=== PATIENT | male | born 1930 | race Caucasian/White ===

== ENCOUNTER 2016-10-22 16:40 | Emergency (ER) | payer MEDICARE ==
--- NOTE | 2016-10-22 17:27 | RAD ---
HISTORY: Fever COMPARISONS: None VIEWS: 2: Frontal and lateral views of the chest. FINDINGS: CARDIOMEDIASTINAL SILHOUETTE: The cardiomediastinal silhouette is normal. KRISTIAN: The kristian are normal. PLEURA: There is mild elevation of the right hemidiaphragm. LUNG PARENCHYMA: The lungs are clear. ABDOMEN: The upper abdomen is clear. There is no subphrenic gas. BONES AND SOFT TISSUES: No bone or soft tissue abnormalities are noted. OTHER: None. IMPRESSION: MILD ELEVATION OF THE RIGHT HEMIDIAPHRAGM. NO ACTIVE CARDIOPULMONARY DISEASE
[2016-10-22 18:11] LABS: Hematocrit 36 % (42-52); Hemoglobin 11.9 g/dl (14.0-18.0); Mean Corpuscular HGB Conc 33 g/dl (31-36); Mean Corpuscular Hemoglobin 30 pg (27-31); Mean Corpuscular Volume 91 fL (80-94); Mean Platelet Volume 9 um3 (7.4-10.4); Red Cell Distribution Width 14 % (10.5-15); White Blood Count 9.2 10^3/ul (3.5-10.8)
[2016-10-22 18:25] LABS: Albumin 3.3 g/dL (3.2-5.2); BUN/Creatinine Ratio 21.1 (8-20); C Reactive Protein 78.14 mg/L (< 5.00); EGFR African American 65.3 (>60); EGFR Non-African American 50.7 (>60); Globulin 3.7 g/dL (2-4); Potassium 3.9 mmol/L (3.5-5.0)
[2016-10-22] MEDS ORDERED: NS 0.9% 1000 ML* 1,000 ML IV ONE (19:12)
[2016-10-22 19:39] LABS: Urine Bacteria 3+ (Absent); Urine Bilirubin Negative (Negative); Urine Glucose Negative (Negative); Urine Nitrite Positive (Negative)
[2016-10-22 19:41] LABS: Total Bilirubin 0.4 mg/dL (0.2-1.0)
[2016-10-22] MEDS ORDERED: Ciprofloxacin 400MG IVPREMIX(* 400 MG/200 ML BAG IVPB ONE (20:09)
--- NOTE | 2016-10-22 20:26 | ED ---
Ryan Van Billy, scribed for Jamin Joseph MD on 10/22/16 at 1659 . HPI Febrile Illness - HPI Summary HPI Summary: Patient is an 86 year-old male coming to [facility] presenting with 99.8F fever today at 1445. He was given 325mg Tylenol without improvement; fever 101.4F at 1600. Patient reports occasionally productive cough, as well. He denies any CP, SOB, abd pain, or N/V/D. Last BM 1 hour ago. - History of Current Complaint Chief Complaint: EDFever Time Seen by Provider: 10/22/16 16:40 Hx Obtained From: Patient Onset/Duration: Started Hours Ago, Still Present Timing: Constant Temperature: 101.4 F Initial Severity: Moderate Pain Intensity: 0 Pain Scale Used: 0-10 Numeric Aggravating Factors: Nothing Alleviating Factors: Nothing Associated Signs and Symptoms: Cough - Allergy/Home Medications Allergies/Adverse Reactions: Allergies Allergy/AdvReac Type Severity Reaction Status Date / Time No Known Allergies Allergy Verified 10/22/16 17:07 Home Medications: Home Medications Acetaminophen TAB* [Tylenol TAB*] 650 mg PO Q4H PRN 10/22/16 [History Confirmed 10/22/16] Donepezil TAB* [Aricept TAB*] 10 mg PO DAILY 10/22/16 [History Confirmed ] Irbesartan (NF) [Avapro (NF)] 150 mg PO BEDTIME 10/22/16 [History Confirmed 06/28] Magnesium Hydroxide LIQ* [Milk of Magnesia LIQ*] 30 ml PO DAILY PRN 10/22/16 [ History Confirmed 10/22/16] Omeprazole CAP* [Prilosec CAP* 20 MG] 40 mg PO DAILY 10/22/16 [History Confirmed 10/22/16] PMH/Surg Hx/FS Hx/Imm Hx Endocrine/Hematology History: Reports: Other Endocrine/Hematological Disorders - pancreatitis History: Reports: Hx Renal Disease Neurological History: Reports: Hx Dementia Infectious Disease History: Unable to Obtain/Confirm Infectious Disease History: Denies: Traveled Outside the [place] in Last 30 Days - Family History Known Family History: Negative: Cardiac Disease, Hypertension, Diabetes - Social History Lives: Assisted Living Alcohol Use: Occasionally Hx Substance Use: No Substance Use Type: Reports: None Hx Tobacco Use: No Smoking Status (MU): Never Smoked Tobacco Review of Systems Positive: Fever Negative: Chest Pain Positive: Cough. Negative: Shortness Of Breath Negative: Abdominal Pain, Vomiting, Diarrhea, Nausea All Other Systems Reviewed And Are Negative: Yes Physical Exam - Summary Physical Exam Summary: VITAL SIGNS: Reviewed. GENERAL: Patient is a well developed and nourished male who is lying comfortable in the stretcher. Patient is not in any acute respiratory distress. HEAD AND FACE: No signs of trauma. No ecchymosis, hematomas or skull depressions. No sinus tenderness. EYES: PERRLA, EOMI x 2, No injected conjunctiva, no nystagmus. EARS: Hearing grossly intact. Ear canals and tympanic membranes are within normal limits. MOUTH: Oropharynx within normal limits. NECK: Supple, trachea is midline, no adenopathy, no JVD, no carotid bruit, no c- spine tenderness, neck with full ROM. CHEST: Symmetric, no tenderness at palpation LUNGS: Coarse breath sounds bilateral. CVS: Regular rate and rhythm, S1 and S2 present, no murmurs or gallops appreciated. ABDOMEN: Soft, non-tender. No signs of distention. No rebound no guarding, and no masses palpated. Bowel sounds are normal. EXTREMITIES: FROM in all major joints, no edema, no cyanosis or clubbing. NEURO: Alert and oriented x 3. No acute neurological deficits. Speech is normal and follows commands. SKIN: Dry and warm Triage Information Reviewed: Yes Vital Signs On Initial Exam: Initial Vitals Temp Pulse Resp BP Pulse Ox 98.8 F 76 16 112/55 94 10/22/16 16:52 10/22/16 16:52 10/22/16 16:52 10/22/16 16:52 10/22/16 16:52 Vital Signs Reviewed: Yes Diagnostics - Vital Signs Vital Signs Temp Pulse Resp BP Pulse Ox 10/22/16 16:52 98.8 F 76 16 112/55 94 - Laboratory Result Diagrams: 10/22/16 18:00 10/22/16 18:00 Lab Statement: Any lab studies that have been ordered have been reviewed, and results considered in the medical decision making process. - Radiology CXR Radiology Interpretation Completed By: Radiologist - MILD ELEVATION OF THE RIGHT HEMIDIAPHRAGM. NO ACTIVE CARDIOPULMONARY DISEASE Course/Dx - Course Assessment/Plan: Patient is an 86 year-old male coming to [facility] presenting with 99.8F fever today at 1445. He was given 325mg Tylenol without improvement; fever 101.4F at 1600. Patient reports occasionally productive cough, as well. He denies any CP, SOB, abd pain, or N/V/D. Last BM 1 hour ago. Bloodwork shows normocytic normochromic anemia, hyponatremia, renal insufficiency likely secondary to dehydration, and increased CRP. UA shows a possible UTI for which he was given ciprofloxacin. We will send for cultures, PCP will f/u results. Influenza A/B negative, CXR shows no pneumonia. At this point, I discussed my physical exam findings and test results with patient and daughter and they were instructed to follow up with PCP. They were also given instructions to reutrn to the ED with any fever, SOB, productive cough, chest pain, or any other symptoms. They understand and agree. - Febrile Illness Differential Diagnoses: Other: - PNA, Bronchitis, URI, Flu - Diagnoses Provider Diagnoses: Urinary tract infection Discharge - Discharge Plan Condition: Stable Disposition: HOME Prescriptions: Ciprofloxacin TAB* [Cipro Tab*] 500 mg PO BID #10 tab Patient Education Materials: Urinary Tract Infection in Men (ED) Referrals: Braxton Washburn MD [Primary Care Provider] - The documentation as recorded by the Ryan marinelli Billy accurately reflects the service I personally performed and the decisions made by me, Jamin Joseph MD.
[2016-10-22 21:54] VITALS: BP 125/78
== END 2016-10-22 21:52 | disposition home or self-care (01) ==
LOC: ED 16:40
DX: N39.0 Urinary tract infection, site not specified (principal); R50.9 Fever, unspecified; R05 Cough
CPT/HCPCS: 36415; 71020; 80053; 81003; 81015; 83605; 83880; 84484; 85025; 85610; 86140; 87040; 87077; 87086; 87186; 87502; 96374; 99285; J0744

== ENCOUNTER 2016-10-24 19:33 | Emergency (ER) | payer MEDICARE ==
[2016-10-24] MEDS ORDERED: NS 0.9% 1000 ML* 1,000 ML IV ONE (20:06)
--- NOTE | 2016-10-24 20:50 | RAD ---
INDICATION: Fall COMPARISON: Chest x-ray dated October 22, 2016 TECHNIQUE: Single AP portable view of the chest was obtained. FINDINGS: Image quality is compromised due to the relative inferiority of a portable chest x-ray. The heart and mediastinum exhibit normal size and contour. There is mild calcified atherosclerosis of the arch of the aorta. The aorta exhibits the same ectatic change it did on the previous chest x-ray. There is asymmetric elevation of the right hemidiaphragm. Otherwise the lungs are grossly clear. There is no evidence of a large pleural effusion. Visualized bones are normal for the patient's age. IMPRESSION: No radiographic evidence for acute cardiopulmonary abnormality on this portable chest x-ray.
[2016-10-24 20:54] LABS: Hematocrit 36 % (42-52); Hemoglobin 11.5 g/dl (14.0-18.0); Mean Corpuscular HGB Conc 32 g/dl (31-36); Mean Corpuscular Hemoglobin 29 pg (27-31); Mean Corpuscular Volume 90 fL (80-94); Mean Platelet Volume 9 um3 (7.4-10.4); Red Blood Count 3.93 10^6/ul (4.0-5.4); Red Cell Distribution Width 14 % (10.5-15); White Blood Count 8.7 10^3/ul (3.5-10.8)
[2016-10-24 20:57] LABS: Albumin 3.2 g/dL (3.2-5.2); BUN/Creatinine Ratio 16.8 (8-20); EGFR African American 70.1 (>60); EGFR Non-African American 54.5 (>60); Globulin 3.6 g/dL (2-4); Potassium 4.1 mmol/L (3.5-5.0); Total Bilirubin 0.3 mg/dL (0.2-1.0); Total Protein 6.8 g/dL (6.4-8.9)
[2016-10-24 20:59] LABS: Add Diff/Slide Review? Slide Review Added; Comments Flag Yes
--- NOTE | 2016-10-24 21:25 | RAD ---
indication: Fall COMPARISON: None A CT scan of the brain and c-spine was performed without intravenous contrast enhancement. Contiguous axial sections were obtained from the lung apices through the vertex. BRAIN: The ventricles, cisterns and sulci exhibit age-appropriate symmetrical involutional changes. There is moderate periventricular and subcortical white matter hypoattenuation most consistent with chronic microvascular disease.. No significant focal abnormality or mass effect is seen. The young-white differentiation is adequately maintained. Coarse atherosclerotic calcification of the petrous carotid arteries and bilateral vertebral arteries are seen. There is no evidence for intracranial hemorrhage. There is slight deviation of the bilateral nasal bones towards the patient's right. Calvarium and remaining visualized bones are intact. The mastoid air cells are appropriately aerated. There are frothy secretions in the bilateral partly visualized mastoid air cells. C-SPINE: There is mild straightening of the normal cervical lordosis. The facet joints and vertebral bodies are appropriately aligned. The atlantodental interval is not widened. Generative changes include loss of intervertebral disc height and marginal osteophyte formation most severely affecting C4-C7. There is calcification at the soft tissue ligamentous surrounding the atlantodental right. There is no hyperdense material in the cervical canal to indicate hemorrhage. The visualized musculature and soft tissues are normal. There is no gross lymphadenopathy visualized. Is seen at the bilateral carotid bulbs . Emphysematous changes are seen at the lung apices. IMPRESSION: 1. No calvarial fracture or acute intracranial hemorrhage. 2. Slight deviation of the nasal bones towards the patient's right. This could be the site of an old fracture. Please correlate to physical examination. 3. Chronic findings include age-appropriate involutional changes and evidence of microvascular disease. 4. Multilevel degenerative changes of the cervical spine without acute fracture or dislocation identified.
[2016-10-24 21:36] LABS: Urine Bacteria Absent (Absent); Urine Bilirubin Negative (Negative); Urine Glucose Negative (Negative); Urine Nitrite Negative (Negative)
[2016-10-24 21:44] LABS: TSH (Thyroid Stimulating Horm) 2.6 mcIU/mL (0.34-5.60)
--- NOTE | 2016-10-24 22:19 | ED ---
Sachi Van SooYoung, scribed for Jamin Joseph MD on 10/24/16 at 2002 . Head Injury - HPI Summary HPI Summary: A 86 y/o M JANICE presents to ED after two falls within two hours [employer] at [facility]. According to family, on the first fall, he hit his head against a wall. On the second fall, he was rising from sitting, felt dizzy and fell. Denies LOC on both falls, denies pain. Pt ambulates with a walker. - History Of Current Complaint Chief Complaint: EDHeadInjury Stated Complaint: FALL Time Seen by Provider: 10/24/16 19:52 Hx Obtained From: Patient, Family/[employer] Mechanism Of Injury: Fall From A Standing Position Severity Currently: None Pain Intensity: 0 Pain Scale Used: 0-10 Numeric - Allergies/Home Medications Allergies/Adverse Reactions: Allergies Allergy/AdvReac Type Severity Reaction Status Date / Time No Known Allergies Allergy Verified 10/22/16 17:07 Home Medications: Home Medications Whiskey 2 oral.liq PO DAILY 10/24/16 [History] PMH/Surg Hx/FS Hx/Imm Hx Previously Healthy: No Endocrine/Hematology History: Reports: Other Endocrine/Hematological Disorders - pancreatitis History: Reports: Hx Renal Disease Neurological History: Reports: Hx Dementia Infectious Disease History: No Infectious Disease History: Denies: Traveled Outside the [place] in Last 30 Days - Family History Known Family History: Negative: Cardiac Disease, Hypertension, Diabetes - Social History Occupation: Retired Lives: At [facility] Alcohol Use: Occasionally Alcohol Amount: 2 oz of scotch Hx Substance Use: No Substance Use Type: Reports: None Hx Tobacco Use: No Smoking Status (MU): Never Smoked Tobacco Review of Systems Neurological: Other - pos: dizziness, hit head All Other Systems Reviewed And Are Negative: Yes Physical Exam - Summary Physical Exam Summary: VITAL SIGNS: Reviewed. GENERAL: Patient is a well developed and nourished male who is lying comfortable in the stretcher. Patient is not in any acute respiratory distress. HEAD AND FACE: No signs of trauma. No ecchymosis, hematomas or skull depressions. No sinus tenderness. EYES: PERRLA, EOMI x 2, No injected conjunctiva, no nystagmus. No photophobia. EARS: Hearing grossly intact. Ear canals and tympanic membranes are within normal limits. MOUTH: Oropharynx within normal limits. NECK: Supple, trachea is midline, no adenopathy, no JVD, no carotid bruit, no c- spine tenderness, neck with full ROM. No meningeal signs, no Kernig's or brudzinskis signs. CHEST: Symmetric, no tenderness at palpation LUNGS: Clear to auscultation bilaterally. No wheezing or crackles. CVS: Regular rate and rhythm, S1 and S2 present, no murmurs or gallops appreciated. ABDOMEN: Soft, non-tender. No signs of distention. No rebound no guarding, and no masses palpated. Bowel sounds are normal. EXTREMITIES: FROM in all major joints, no edema, no cyanosis or clubbing. NEURO: Alert and oriented x 2 which is his base line. No acute neurological deficits. Speech is normal and follows commands. SKIN: Dry and warm Triage Information Reviewed: Yes Vital Signs On Initial Exam: Initial Vitals Temp Pulse Resp BP Pulse Ox 98.5 F 74 16 118/60 95 10/24/16 19:49 10/24/16 19:49 10/24/16 19:49 10/24/16 19:49 10/24/16 19:49 Vital Signs Reviewed: Yes Diagnostics - Vital Signs Vital Signs Temp Pulse Resp BP Pulse Ox 10/24/16 19:49 98.5 F 74 16 118/60 95 - Laboratory Result Diagrams: 10/24/16 20:30 10/24/16 20:30 Lab Statement: Any lab studies that have been ordered have been reviewed, and results considered in the medical decision making process. - Radiology CXR Xray Interpretation: No Acute Changes - IMPRESSION: No radiographic evidence for acute cardiopulmonary abnormality on this portable chest XR. Radiology Interpretation Completed By: Radiologist - CT C-SPINE CT Interpretation: Positive (See Comments) - IMPRESSION: 1. No calvarial fracture or acute intracranial hemorrhage. 2. Slight deviation of the nasal bones towards the patient's right. This could be the site of an old fracture. Please correlate to physical examination. 3. Chronic findings include age- appropriate involutional changes and evidence of microvascular disease. 4. Multilevel degenerative changes of the cervical spine without acute fracture or dislocation identified. CT Interpretation Completed By: Radiologist CT BRAIN CT Interpretation: Positive (See Comments) - IMPRESSION: 1. No calvarial fracture or acute intracranial hemorrhage. 2. Slight deviation of the nasal bones towards the patient's right. This could be the site of an old fracture. Please correlate to physical examination. 3. Chronic findings include age- appropriate involutional changes and evidence of microvascular disease. 4. Multilevel degenerative changes of the cervical spine without acute fracture or dislocation identified. CT Interpretation Completed By: Radiologist Re-Evaluation - Re-Evaluation 1 Re-Evaluation Time: 21:58 Change: Improved Comment: Discussing diagnostic results with pt. Head Injury Course/Dx Assessment/Plan: A 86 y/o M JANICE presents to ED after two falls within two hours [employer] at [facility]. According to family, on the first fall, he hit his head against a wall. On the second fall, he was rising from sitting, felt dizzy and fell. Denies LOC on both falls, denies pain. Pt ambulates with a walker. Blood work wnl except for slight anemia and increased creatinine. CXR: No acute cardiopulmonary pathology. Head and C spine CT IMPRESSION: 1. No calvarial fracture or acute intracranial hemorrhage. 2. Slight deviation of the nasal bones towards the patient's right. This could be the site of an old fracture. Please correlate to physical examination. 3. Chronic findings include age-appropriate involutional changes and evidence of. microvascular disease. 4. Multilevel degenerative changes of the cervical spine without acute fracture or dislocation identified. Patient continues to be asymptomatic , therefore he will be discharged home w/ f/u of PMD. Patient will be discharge with family who agreed to take patient back to the snf. I discussed all the findings and test results with the patient. Patient was instructed to return to the emergency room immediately if any of the symptoms return or worsens. Patient understands and agrees. Plan of care was discussed with the patient and patient understands and agrees with the plan of care. All questions were answered at patient satisfaction. There were no further complaints or concerns. Patient is alert and oriented x 3. Patient vital signs are stable. Patient is to follow up with primary care physician in the next 2 to 3 days. Patient understands and agrees. - Diagnoses Differential Diagnosis/HQI/PQRI: Cervical Sprain, Concussion Without LOC, Contusion, Hematoma, Skull Fracture Provider Diagnoses: Accidental fall, Head contusion, Neck contusion Discharge - Discharge Plan Condition: Stable Disposition: HOME Patient Education Materials: Fall Prevention for Older Adults (ED), Scalp Contusion in Adults (ED) Referrals: Maddison GAN,Braxton [Primary Care Provider] - The documentation as recorded by the Sachi marinelli SooYoung accurately reflects the service I personally performed and the decisions made by me, Jamin Joseph MD.
[2016-10-24 22:25] VITALS: BP 136/70
== END 2016-10-24 22:13 | disposition home or self-care (01) ==
LOC: ED 19:33
DX: S00.93XA Contusion of unspecified part of head, initial encounter (principal); S10.93XA Contusion of unspecified part of neck, initial encounter; W19.XXXA Unspecified fall, initial encounter; Y93.9 Activity, unspecified; Y92.9 Unspecified place or not applicable; Y99.9 Unspecified external cause status
CPT/HCPCS: 36415; 70450; 71010; 72125; 80053; 81003; 81015; 83735; 84443; 84484; 85025; 87086; 93005; 99283

== ENCOUNTER 2016-12-25 03:00 | Emergency (ER) | payer MEDICARE ==
[2016-12-25 03:12] VITALS: BP 152/67
--- NOTE | 2016-12-25 04:08 | ED ---
Krunal Van Aidan, scribed for Augie Renner MD on 12/25/16 at 0407 . Head Injury - HPI Summary HPI Summary: 86 y/o male presents to the ED via EMS with a complaint of an acute, constant, mildly painful (2/10) head injury and mild buttocks pain that resulted from a fall just [employer]. Pt fell from the standing position and landed directly onto his buttocks. Staff from his home then found him on the floor. Though he did not initially hit his head, when staff attempted to help transport the patient, he slipped and hit his head on the floor. There was no LOC, however, he did receive a small hematoma on his head. - History Of Current Complaint Chief Complaint: EDHeadInjury Stated Complaint: FALL/HEAD INJURY Time Seen by Provider: 12/25/16 03:07 Hx Obtained From: Patient, EMS Mechanism Of Injury: Fall From A Standing Position - and then dropped (see HPI) Onset/Duration: Started Minutes Ago, Still Present - hematoma on head Onset of Pain: Immediate Severity Currently: Mild Severity Initially: Mild Pain Intensity: 2 Pain Scale Used: 0-10 Numeric Location of Head Injury: Other: - back of head Location: Discrete At: - back of head Character: Throbbing Aggravating Factor(s): Other: - unknown Alleviating Factor(s): Other: - unknown Associated Signs And Symptoms: Other: - small hematoma on head where Pt's head hit the ground, mild buttocks pain - Risk Factors SDH Risk Factor: Male - Allergies/Home Medications Allergies/Adverse Reactions: Allergies Allergy/AdvReac Type Severity Reaction Status Date / Time Memantine [From Namenda] Allergy Unknown Verified 12/25/16 03:09 Reaction Details Oxybutynin Allergy Unknown Verified 12/25/16 03:09 Reaction Details Penicillins [PCN] Allergy Unknown Verified 12/25/16 03:09 Reaction Details Rivastigmine [From Exelon] Allergy Unknown Verified 12/25/16 03:09 Reaction Details Home Medications: Home Medications Alprazolam [Xanax] 0.5 mg PO QPM 12/25/16 [History Confirmed 12/25/16] Melatonin 5 mg PO QPM 12/25/16 [History Confirmed 12/25/16] PMH/Surg Hx/FS Hx/Imm Hx Endocrine/Hematology History: Reports: Other Endocrine/Hematological Disorders - pancreatitis History: Reports: Hx Renal Disease Neurological History: Reports: Hx Dementia - Immunization History Date of Tetanus Vaccine: unk Date of Influenza Vaccine: unk Infectious Disease History: No Infectious Disease History: Denies: Traveled Outside the [place] in Last 30 Days - Family History Known Family History: Negative: Cardiac Disease, Hypertension, Diabetes - Social History Occupation: Retired Lives: [facility] Alcohol Use: Occasionally Alcohol Amount: 2 oz of scotch Hx Substance Use: No Substance Use Type: Reports: None Hx Tobacco Use: No Smoking Status (MU): Never Smoked Tobacco Review of Systems Constitutional: Negative Eyes: Negative ENT: Negative Cardiovascular: Negative Respiratory: Negative Gastrointestinal: Negative Genitourinary: Negative Positive: Arthralgia - bottocks pain (mild). Negative: Myalgia, Decreased ROM, Edema Negative: Rash, Bruising, Other - small hematoma to the back of the head with mild associated pain Positive: Headache. Negative: Weakness, Paresthesia, Numbness, Syncope, Slurred Speech Psychological: Normal All Other Systems Reviewed And Are Negative: Yes Physical Exam Triage Information Reviewed: Yes Vital Signs On Initial Exam: Initial Vitals Temp Pulse Resp BP Pulse Ox 98.1 F 55 16 152/67 95 12/25/16 03:02 12/25/16 03:02 12/25/16 03:02 12/25/16 03:02 12/25/16 03:02 Vital Signs Reviewed: Yes Appearance: Positive: Well-Appearing, Pain Distress - mild discomfort Skin: Positive: Warm Head/Face: Positive: Other - sts to occipital area Eyes: Positive: YEIMY ENT: Positive: Hearing grossly normal Neck: Positive: Supple Cardiovascular: Positive: RRR Abdomen Description: Positive: No Organomegaly Bowel Sounds: Positive: Present Musculoskeletal: Positive: Strength/ROM Intact Neurological: Positive: Sensory/Motor Intact - Salo Coma Scale Coma Scale Total: 14 Diagnostics - Vital Signs Vital Signs Temp Pulse Resp BP Pulse Ox 12/25/16 03:02 98.1 F 55 16 152/67 95 - Laboratory Lab Statement: Any lab studies that have been ordered have been reviewed, and results considered in the medical decision making process. - Radiology PELVIS XR Xray Interpretation: No Acute Changes - IMPRESSION: Normal Pelvis Radiology Interpretation Completed By: ED Physician - Dr. Renner - CT BRAIN CT CT Interpretation: No Acute Changes - IMPRESSION: Ventricles are prominent. Sulci and extra-axial CSF spaces are prominent. Intracranial vascular structures are normal in attenuation. There is mucosal thickening and a small amount of fluid in the left maxillary sinus. There is no calvarial fracture. There is a focal scalp thickening overlying the right parietal calvarium. Head Injury Course/Dx Course Of Treatment: 86 y/o male presents to the ED via EMS with a complaint of an acute, constant, mildly painful (2/10) head injury and mild buttock pain that resulted from a fall just [employer]. Though he initially only fell onto his buttocks, when staff tried to transport him, he slipped and hit his head on the ground. No reported LOC, however, he did develop a small hematoma on his head. Brain CT and Pelvis x-ray were negative. The patient will be discharged with a Dx of multiple contusions s/p fall. - Diagnoses Provider Diagnoses: multiple contusion s/p fall Discharge - Discharge Plan Condition: Stable Disposition: HOME Discharge Disposition Comment: Please follow up with your primary care physician within 2 days. Patient Education Materials: Hematoma (ED) Referrals: Barxton Washburn MD [Primary Care Provider] - The documentation as recorded by the Krunal marinelli Aidan accurately reflects the service I personally performed and the decisions made by me, Augie Renner MD.
--- NOTE | 2016-12-25 07:47 | RAD ---
HISTORY: Fall, head injury COMPARISONS: October 24, 2016 TECHNIQUE: Multiple contiguous axial CT scans were obtained of the head without intravenous contrast. FINDINGS: HEMORRHAGE/INFARCT: There is no hemorrhage or acute infarct. MASSES/SHIFT: There is no mass or shift. EXTRA-AXIAL SPACES: There are no extra-axial fluid collections. SULCI AND VENTRICLES: The sulci and ventricles are normal in size and position for the patient's stated age. CEREBRUM: There is hypoattenuation of the periventricular and subcortical white matter. BRAINSTEM: There are no focal parenchymal abnormalities. CEREBELLUM: There are no focal parenchymal abnormalities. VESSELS: The vessels are grossly normal. PARANASAL SINUSES: There is mucosal thickening of the maxillary sinuses bilaterally, with an air-fluid levels in the left maxillary sinus. ORBITS: The orbits are unremarkable. BONES AND SOFT TISSUE: No bone or soft tissue abnormalities are noted. OTHER: None IMPRESSION: 1. NO ACUTE INTRACRANIAL PATHOLOGY. 2. CHRONIC SMALL VESSEL ISCHEMIC CHANGES. 3. MILD SINUS MUCOSAL INFLAMMATORY DISEASE, WITH AN AIR-FLUID LEVEL IN THE LEFT MAXILLARY. IN THE CORRECT CLINICAL SETTING, THIS MAY REPRESENT ACUTE SINUSITIS
--- NOTE | 2016-12-25 07:47 | RAD ---
HISTORY: Fall. No other history is provided. COMPARISONS: None VIEWS: 1, Single frontal view of the pelvis FINDINGS: BONE DENSITY: Normal. BONES: There is no displaced fracture. 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 SOFT TISSUES: Unremarkable. OTHER FINDINGS: None. IMPRESSION: NO ACUTE OSSEOUS INJURY. IF SYMPTOMS PERSIST, RECOMMEND REPEAT IMAGING.
== END 2016-12-25 04:54 | disposition home or self-care (01) ==
LOC: ED 03:00
DX: T14.8 Other injury of unspecified body region (principal); K62.89 Other specified diseases of anus and rectum; R51 Headache; W19.XXXA Unspecified fall, initial encounter; Y93.9 Activity, unspecified; Y92.9 Unspecified place or not applicable
CPT/HCPCS: 70450; 72170; 99283